=== PATIENT | male | born 1970 | race Caucasian/White ===

== ENCOUNTER 2017-04-12 12:15 | Emergency (ER) | payer BC ==
[~2017-04-12] VITALS: Ht 170.2 cm; Wt 65.5 kg
[~2017-04-12 12:15] MED LIST: NOHOMEMEDS
[2017-04-12 14:11] LABS: BASOPHIL COUNT 0.1 K/uL (0-0.1); EOSINOPHIL (%) 2.6 % (0-5); EOSINOPHIL COUNT 0.2 K/uL (0-0.3); HEMATOCRIT 39.5 % (38.0-50.0); IMMATURE GRANULOCYTE (%) 0.3 % (0.0-0.7); INSTRUMENT ABS NEUTROPHIL CT 4.7 K/uL; LYMPHOCYTE COUNT 1.6 K/uL (1.0-2.8); MCH 31.1 PG (29.0-34.0); MCHC 34.2 G/DL (30.0-36.0); MEAN PLAT.VOLUME 8.6 uM^3 (9.0-12.4); MONOCYTE (%) 6.5 % (3-12); MONOCYTE COUNT 0.5 K/uL (0-0.8); NEUTROPHIL (%) 67.4 % (45-76); NEUTROPHIL COUNT 4.7 K/uL (1.8-6.4); PLATELET COUNT 314 K/uL (156-360); RBC DIS.WIDTH-CV 12.3 % (11.8-14.6); RBC DIS.WIDTH-SD 41.3 % (39-53); RED BLOOD COUNT 4.34 M/uL (4.00-5.50)
[2017-04-12 14:23] LABS: CHLORIDE 109 mEq/L (99-109); SODIUM 141 mEq/L (136-147)
[2017-04-12 14:24] LABS: GLUCOSE 109 mg/dL (70-99)
[2017-04-12 14:26] LABS: ANION GAP 11 MEQ/L (2-14)
[2017-04-12 14:29] LABS: GFR ESTIMATE (CALCULATED) > 59 mL/min/; UREA NITROGEN (BUN) 17 mg/dL (9-23)
[2017-04-12] MEDS ORDERED: KEFLEX500 MG PO (14:38)
[2017-04-12 14:48] VITALS: BP 121/69
== END 2017-04-12 14:55 | disposition home or self-care (01) ==
LOC: EME 12:15
PROVIDERS: Emergency Medicine
DX: L03.114 Cellulitis of left upper limb (principal)
CPT/HCPCS: 80048; 85025; 99281; 99284

== ENCOUNTER 2017-09-09 12:27 | Emergency (ER) | payer BC ==
[~2017-09-09] VITALS: Ht 170.2 cm; Wt 66.0 kg
[~2017-09-09 12:27] MED LIST changes: +KEFLEX500 MG PO
[2017-09-09] MEDS ORDERED: NAPROSYN500 MG PO (15:28)
[2017-09-09] MEDS ORDERED: TRAMADOL HCL50 MG PO (15:28)
[2017-09-09] MEDS ORDERED: CLINDAMYCIN HC300 MG PO (15:28)
[2017-09-09 15:41] VITALS: BP 133/87
== END 2017-09-09 15:42 | disposition home or self-care (01) ==
LOC: EME 12:27
PROC: 0H9FXZZ Drainage of Right Hand Skin, External Approach (ICD-10-PCS; principal; 2017-09-09)
DX: L02.511 Cutaneous abscess of right hand (principal); Z86.14 Personal history of Methicillin resistant Staphylococcus aureus infection
CPT/HCPCS: 73140; 99281; 99284

== ENCOUNTER 2018-02-01 23:13 | Emergency (ER) | payer BC ==
[~2018-02-01] VITALS: Ht 170.2 cm; Wt 67.4 kg
[~2018-02-01 23:13] MED LIST changes: +CLINDAMYCIN HC300 MG PO; +NAPROSYN500 MG PO; +TRAMADOL HCL50 MG PO
[2018-02-01] MEDS ORDERED: TOBREX5 ML RIGHT EYE (23:54)
[2018-02-01] MEDS ORDERED: ERYTHROMYC1 APPLICAT RIGHT EYE (23:54)
[2018-02-02 00:07] VITALS: BP 127/73
== END 2018-02-02 00:09 | disposition home or self-care (01) ==
LOC: EME 23:13
DX: S05.01XA Injury of conjunctiva and corneal abrasion without foreign body, right eye, initial encounter (principal); W22.8XXA Striking against or struck by other objects, initial encounter; Y93.89 Activity, other specified; H54.62 Unqualified visual loss, left eye, normal vision right eye; H54.8 Legal blindness, as defined in USA
CPT/HCPCS: 99281; 99283